=== PATIENT | female | born 1970 | race Caucasian/White ===

== ENCOUNTER → 2019-09-14 11:00 | Outpatient (BNVA) | payer OTHER, SELFPAY | PROVIDERS: Visit Provider Obstetrics & Gynecology | DX: Z12.4 Encounter for screening for malignant neoplasm of cervix (principal) | CPT/HCPCS: 88175 ==

== ENCOUNTER → 2019-10-05 10:16 | Outpatient (BNVA) | payer OTHER, SELFPAY | PROVIDERS: Visit Provider Nurse Practitioner Family | DX: R03.0 Elevated blood-pressure reading, without diagnosis of hypertension (principal); Z13.6 Encounter for screening for cardiovascular disorders; Z79.899 Other long term (current) drug therapy; Z12.31 Encounter for screening mammogram for malignant neoplasm of breast; E55.9 Vitamin D deficiency, unspecified; Z12.11 Encounter for screening for malignant neoplasm of colon | CPT/HCPCS: 36415; 80053; 80061; 81003; 82306; 83036; 84443; 85025 ==

== ENCOUNTER → 2019-10-08 00:01 | Outpatient (BNVA) | payer OTHER, SELFPAY | PROVIDERS: Visit Provider Obstetrics & Gynecology | DX: Z01.419 Encounter for gynecological examination (general) (routine) without abnormal findings (principal); Z01.411 Encounter for gynecological examination (general) (routine) with abnormal findings | CPT/HCPCS: 82270 ==

== ENCOUNTER 2019-11-23 10:12 | Outpatient (CLI) | payer OTHER, SELFPAY ==
--- NOTE | 2019-11-23 10:30 | MM_ITS ---
WS: [id number] Bilateral screening digital mammogram, 11/23/2019 Clinical Data: breast cancer screening Comparison: None. Findings: The breast parenchymal pattern shows extreme density No spiculated masses or clustered calcifications are seen. There are no secondary signs of carcinoma. MM/[id number] Impression: 1. Negative bilateral mammogram unchanged. 2. Recommend annual screening mammograms. BIRADS: 1-Negative FOLLOW UP: 1 Year Follow-up The CAD price checker was used.
== END 2019-11-23 10:13 | disposition home or self-care (01) ==
LOC: RADSHAW 10:15
PROVIDERS: PCP Nurse Practitioner Family; Visit Provider Nurse Practitioner Family
DX: Z12.31 Encounter for screening mammogram for malignant neoplasm of breast (principal)
CPT/HCPCS: 77067

== ENCOUNTER → 2019-12-10 14:32 | Outpatient (BNVA) | payer OTHER, SELFPAY | PROVIDERS: PCP Nurse Practitioner Family; Visit Provider Internal Medicine | DX: Z20.828 Contact with and (suspected) exposure to other viral communicable diseases (principal) | CPT/HCPCS: 87635 ==

== ENCOUNTER 2019-12-14 07:53 | Day surgery (SDC) | payer OTHER, SELFPAY ==
[2019-12-12 11:13] VITALS: BMI 21.7
[2019-12-14 08:28] LABS: OR HCG Qualitative Urine Negative (Negative)
[2019-12-14] MEDS: sodium chloride 0.9% 1,000 ML 30 ML IV (08:32)
--- NOTE | 2019-12-14 08:40 | P.ANESASSM_ITS ---
Pre-Anesthetic Assessment Pre-Anesthetic Assessment: Height/Weight: Height 1.68 m Weight 61.235 kg Preop Diagnosis: screen Proposed Procedure: Operation Date: 12/14/19 09:00 Proposed Procedures p Colonoscopy 21408 Z12.11(Not Applicable) - Jordan Salazar MD Familial anesthetic complications: none Was Beta Júnior taken within 24 hours: N/A Last intake: Intake Last Liquid Date 12/13/19 Last Liquid Time 23:59 Last Solid Date 12/12/19 Last Solid Time 19:30 Social: Social History: No alcohol and No tobacco Exam: Pre-Anes Outpt Exam: alert, oriented x 3, clear to auscultation bilaterally and regular rate & rhythm Airway: Cervical ROM: WNL MP: 2 Dentition: Full Anesthetic Plan: ASA status: 2 Anesthesia: MAC Risk of > 500 ml blood loss (7ml/kg in children): No Meds/Allergies Current Medications: Current Medications Generic Name Dose Route Start Last Admin Trade Name Freq PRN Reason Stop Dose Admin Sodium Chloride 1,000 mls @ 30 ml s/hr 12/14/19 08:15 12/14/19 08:32 Sodium Chloride 0.9% IV 12/15/19 08:14 30 mls/hr .Q24H JOSEPH Administration PFSH Anesthesia PFSH: Medical History (Updated 11/01/19 @ 11:23 by Jordan Salazar MD) Breast cancer screening by mammogram Elevated blood-pressure reading, without diagnosis of hypertension Hypertension screen Medication management Surgical History History of cholecystectomy (~2000) Laparoscopic. In [place], [place] History of tonsillectomy and adenoidectomy age 2 or 3 Family History Mother Hypertension Heart disease Stroke Social History (Updated 11/01/19 @ 11:03 by Debra Kinney, CT) Smoking and tobacco status: former smoker Quit status (tobacco): has quit using tobacco Year quit tobacco: 2014 Former quit date comment: Most 2 ppd. Smoked for approx 30 years Alcohol intake: current Alcohol intake frequency: few times a week History of recent travel: No Female Reproductive History: Date of last menstrual period: 03/10/19 Data Anesthesia Other Labs: Laboratory Results - last 48 hr 12/14/19 08:26 Urine HCG, Qual Negative Cardiac Studies: No Data to Display
--- NOTE | 2019-12-14 09:07 | W.PM.OPSUD ---
Surgery/Procedure H&P Update DATE OF PROCEDURE: December 14, 2019 PREOP DIAGNOSIS: screen PLANNED PROCEDURE: Operation Date: 12/14/19 09:00 Proposed Procedures p Colonoscopy 25692 Z12.11(Not Applicable) - Jordan Salazar MD
--- NOTE | 2019-12-14 09:07 | W.PM.OPSFHP ---
Same Day Surgery H&P Indication for Procedure/HPI DATE OF PROCEDURE: December 14, 2019 CHIEF COMPLAINT/INDICATIONFOR SURGICAL PROCEDURE: Screening colonoscopy average risk PREOP DIAGNOSIS: screen PLANNED PROCEDRUE: Operation Date: 12/14/19 09:00 Proposed Procedures p Colonoscopy 70200 Z12.11(Not Applicable) - Jordan Salazar MD Medications/Allergies* Home Medications Medication Instructions Recorded Confirmed Type No Known Home Medications 09/14/19 12/12/19 History Allergies/Adverse Reactions Allergy/AdvReac Type Severity Reaction Status Date / Time No Known Allergies Allergy Verified 12/12/19 11:06 Current Medications: Generic Name Dose Route Start Last Admin Trade Name Freq PRN Reason Stop Dose Admin Sodium Chloride 1,000 mls @ 30 mls/hr 12/14/19 08:15 12/14/19 08:32 Sodium Chloride 0.9% IV 12/15/19 08:14 30 mls/hr .Q24H JOSEPH Administration Pertinent History/Comorbid Conditions* Medical History (Updated 11/01/19 @ 11:23 by Jordan Salazar MD) Breast cancer screening by mammogram Elevated blood-pressure reading, without diagnosis of hypertension Hypertension screen Medication management Surgical History (Updated 09/14/19 @ 10:46 by Alpesh Menjivar MD) History of cholecystectomy (~2000) Laparoscopic. In [place], [place] History of tonsillectomy and adenoidectomy age 2 or 3 Family History (Updated 09/14/19 @ 10:06 by Rabia Jane LPN) Heart disease Mother Hypertension Mother Stroke Mother Social History Smoking and tobacco status: former smoker Quit status (tobacco): has quit using tobacco Year quit tobacco: 2014 Former quit date comment: Most 2 ppd. Smoked for approx 30 years Alcohol intake: current Alcohol intake frequency: few times a week History of recent travel: No Pertinent Exam Findings alert, oriented x 3, clear to auscultation bilaterally, regular rate & rhythm, operative site marked and procedure specific exam findings Recommendations Surgery/Procedure today Coding Level of Care Code Acute Fitting Room Operator for Masha Bradford
[2019-12-14 09:33] VITALS: BP 94/70; PULSE 68; RESP 18; TEMP 36.5; O2SAT 96
[2019-12-14 09:45] VITALS: BP 96/74; PULSE 77; RESP 18; O2SAT 98
--- NOTE | 2019-12-14 09:50 | ANE.PACU2 ---
Inpatient post-anesthesia follow up: Airway intact: Yes Vital signs: Temperature 97.7 F Pulse Rate 77 Respiratory Rate 18 Blood Pressure 96/74 Pulse Oximetry 98 Oxygen Delivery Me thod Room Air Oxygen Flow Rate Fraction of Inspir ed Oxygen Hydration adequate: Yes Nausea and vomiting: No Pain level: 2 Mental status: Baseline
== END 2019-12-14 09:54 | disposition home or self-care (01) ==
PROVIDERS: Anesthesiology; PCP Nurse Practitioner Family; Visit Provider Internal Medicine
PROC: 0DJD8ZZ Inspection of Lower Intestinal Tract, Via Natural or Artificial Opening Endoscopic (ICD-10-PCS; CPT 45378; principal; 2019-12-14 09:00)
DX: Z12.11 Encounter for screening for malignant neoplasm of colon (principal); Z87.891 Personal history of nicotine dependence
CPT/HCPCS: 12345; 45378; 84703; J2704; J7030

== ENCOUNTER → 2021-08-19 09:34 | Outpatient (BNVA) | payer OTHER, SELFPAY | PROVIDERS: PCP Nurse Practitioner Family; Visit Provider Nurse Practitioner | DX: Z12.31 Encounter for screening mammogram for malignant neoplasm of breast (principal); N95.1 Menopausal and female climacteric states; Z79.899 Other long term (current) drug therapy | CPT/HCPCS: 80053; 80061; 82306; 84443; 85025 ==

== ENCOUNTER 2021-09-11 13:00 | Outpatient (CLI) | payer OTHER, SELFPAY ==
--- NOTE | 2021-09-11 13:20 | MM_ITS ---
WS: [id number] Bilateral screening 3D tomosynthesis digital mammogram, 09/11/2021 Clinical Data: SCREENING Comparison: 11/23/2019 Findings: The breast parenchymal pattern shows extreme density No spiculated masses or clustered calcifications are seen. There are no secondary signs of carcinoma. MM/[place] [id number] Impression: 1. Negative bilateral mammogram unchanged. 2. Recommend annual screening mammograms. BIRADS: 1-Negative FOLLOW UP: 1 Year Follow-up The CAD production checker was used.
== END 2021-09-11 13:01 | disposition home or self-care (01) ==
LOC: RAD 13:01
PROVIDERS: PCP Nurse Practitioner Family; Visit Provider Nurse Practitioner
DX: Z12.31 Encounter for screening mammogram for malignant neoplasm of breast (principal)
CPT/HCPCS: 77063; 77067

== ENCOUNTER → 2023-05-31 10:47 | Outpatient (BNVA) | payer OTHER, SELFPAY | PROVIDERS: PCP Nurse Practitioner Family; Visit Provider Nurse Practitioner Family | DX: Z00.00 Encounter for general adult medical examination without abnormal findings (principal); Z79.899 Other long term (current) drug therapy; I10 Essential (primary) hypertension; Z13.6 Encounter for screening for cardiovascular disorders; Z12.31 Encounter for screening mammogram for malignant neoplasm of breast | CPT/HCPCS: 80053; 80061; 81003; 82306; 83036; 84439; 84443; 85025 ==

== ENCOUNTER 2023-09-16 10:54 | Outpatient (CLI) | payer OTHER, SELFPAY ==
--- NOTE | 2023-09-16 11:00 | MM_ITS ---
WS: [id number] BILATERAL SCREENING DIGITAL TOMOSYNTHESIS MAMMOGRAM WITH CAD HISTORY: Z12.31 - Encounter for screening mammogram for malignant ... COMPARISON: 09/11/2021, 11/23/2019 Bilateral CC and MLO views with tomosynthesis and synthetic mammography submitted. Computer aided det ection analyzed. Breast composition: The breasts are heterogeneously dense, which may obscure small masses. No suspici ous masses, microcalcifications or architectural distortion. MM/[place] [id number] IMPRESSION: BI-RADS: 1-Negative FOLLOW UP: 1 Year Follow-up
== END 2023-09-16 10:55 | disposition home or self-care (01) ==
LOC: RAD 10:54
PROVIDERS: PCP Nurse Practitioner Family; Visit Provider Nurse Practitioner Family
DX: Z12.31 Encounter for screening mammogram for malignant neoplasm of breast (principal)
CPT/HCPCS: 77063; 77067

== ENCOUNTER → 2024-11-08 14:27 | Outpatient (BNVA) | payer OTHER, SELFPAY | PROVIDERS: PCP Nurse Practitioner Family; Visit Provider Nurse Practitioner Family | DX: I10 Essential (primary) hypertension (principal); N95.1 Menopausal and female climacteric states; Z79.899 Other long term (current) drug therapy | CPT/HCPCS: 80053; 80061; 81003; 82306; 83036; 84443; 85025 ==

== ENCOUNTER 2024-12-13 10:15 | Outpatient (CLI) | payer OTHER, SELFPAY ==
--- NOTE | 2024-12-13 10:20 | MM_ITS ---
WS: [id number] BILATERAL SCREENING DIGITAL TOMOSYNTHESIS MAMMOGRAM WITH CAD HISTORY: Z12.39 - Encounter for other screening for malignant neop... COMPARISON: 09/16/2023, 09/11/2021 Bilateral CC and MLO views with tomosynthesis and synthetic mammography submitted. Computer aided detection analyzed. Breast composition: The breasts are heterogeneously dense, which may obscure small masses. No suspicious masses, microcalcifications or architectural distortion. MM/MM [facility] tomosynthesis [id number] IMPRESSION: BI-RADS: 1 - Negative FOLLOW UP: 1 Year Follow-up
== END 2024-12-13 10:16 | disposition home or self-care (01) ==
LOC: MOBLMAM 10:16
PROVIDERS: PCP Nurse Practitioner Family; Visit Provider Nurse Practitioner Family
DX: Z12.31 Encounter for screening mammogram for malignant neoplasm of breast (principal); R92.333 Mammographic heterogeneous density, bilateral breasts
CPT/HCPCS: 77063; 77067